=== PATIENT | male | born 1960 | race Caucasian/White ===

== ENCOUNTER → 2024-01-04 06:17 | Day surgery (SDC) | payer OTHER, SELFPAY | LOC: GI 06:17 | PROVIDERS: ATTENDING PHYSICIAN Internal Medicine Gastroenterology; FAMILY PHYSICIAN Family Medicine | DX: Z12.11 Encounter for screening for malignant neoplasm of colon (principal); D12.2 Benign neoplasm of ascending colon; D12.3 Benign neoplasm of transverse colon; D12.4 Benign neoplasm of descending colon; D12.8 Benign neoplasm of rectum; K62.1 Rectal polyp; R19.5 Other fecal abnormalities; I48.91 Unspecified atrial fibrillation; Z86.79 Personal history of other diseases of the circulatory system | CPT/HCPCS: 45385; 88305 ==